=== PATIENT | male | born 1985 | race Hispanic/Latino ===

== ENCOUNTER 2023-11-14 10:18 | Inpatient (IN) | payer OTHER ==
--- OUTSIDE RECORDS SUMMARY | 2023-11-14 10:22 | XMS REPORT | Continuity of Care Document ---
Author Name Unknown Address [address] [place] [address] [address] [id number] [facility] thconnect Address [address] [facility] 1 [address] [place] [address] Care Team Providers Care Compliance Reviewer Name Role Phone Anson Attending Clinician Lindsay Griggs Admitting Clinician Lindsay e Payers Payer Name Policy Type Policy Number Effective Date Expirati on Date Source [facility] [id number] [employer] [facility] [id number] Social History Smoking Status Start Date Stop Date Source Former Smoker [facility] Practice Medications Ordered Medication Name Filled Medication Name Start Date Stop Date Current Medication? Ordering Clinician Indication Dosage Frequency Signature (SIG) Comments Components Source Kenalog 40 mg/mL suspension for injectionTa ke 40 mg by injection route. Kenalog 40 mg/mL suspension for injectionTa ke 40 mg by injection route. 01-20 15:32: 31 No Kenalog 40 mg/mL suspension for injectionT shantell 40 mg by injection route. [facility] Depo-Medrol 80 mg/mL suspension for injectionTa ke 80 mg by injection route. Depo-Medrol 80 mg/mL suspension for injectionTa ke 80 mg by injection route. 01-20 15:30: 30 No Depo-Medro l 80 mg/mL suspension for injectionT shantell 80 mg by injection route. [facility] prednisone 10 mg tablet 4 po qd x 2 days, then 3 po qd x 2 days then 2 po qd x 2 days then 1 po qd x 2 days then 1/2 tab po qd x 2 days prednisone 10 mg tablet 4 po qd x 2 days, then 3 po qd x 2 days then 2 po qd x 2 days then 1 po qd x 2 days then 1/2 tab po qd x 2 days No prednisone 10 mg tablet 4 po qd x 2 days, then 3 po qd x 2 days then 2 po qd x 2 days then 1 po qd x 2 days then 1/2 tab po qd x 2 days [facility] ergocalcife rol (vitamin D2) 1,250 mcg (50,000 unit) capsule Take 1 capsule every week by oral route. ergocalcife rol (vitamin D2) 1,250 mcg (50,000 unit) capsule Take 1 capsule every week by oral route. No 1capsul e(s) Q1W ergocalcif lynn (vitamin D2) 1,250 mcg (50,000 unit) capsule Take 1 capsule every week by oral route. [facility] prednisone 10 mg tablet 4 po qd x 2 days, then 3 po qd x 2 days then 2 po qd x 2 days then 1 po qd x 2 days then 1/2 tab po qd x 2 days prednisone 10 mg tablet 4 po qd x 2 days, then 3 po qd x 2 days then 2 po qd x 2 days then 1 po qd x 2 days then 1/2 tab po qd x 2 days No prednisone 10 mg tablet 4 po qd x 2 days, then 3 po qd x 2 days then 2 po qd x 2 days then 1 po qd x 2 days then 1/2 tab po qd x 2 days [facility] amoxicillin 500 mg tablet Take 2 tablets twice a day by oral route for 10 days. amoxicillin 500 mg tablet Take 2 tablets twice a day by oral route for 10 days. No 2 BID amoxicilli n 500 mg tablet Take 2 tablets twice a day by oral route for 10 days. [facility] Depo-Medrol 80 mg/mL suspension for injection Take 80 mg by injection route. Depo-Medrol 80 mg/mL suspension for injection Take 80 mg by injection route. No 80mg Depo-Medro l 80 mg/mL suspension for injection Take 80 mg by injection route. [facility] Kenalog 40 mg/mL suspension for injection Take 40 mg by injection route. Kenalog 40 mg/mL suspension for injection Take 40 mg by injection route. No 40mg Kenalog 40 mg/mL suspension for injection Take 40 mg by injection route. [facility] Vital Signs Vital Name Observation Time Observation Value Comments S ource BP Diastolic 2023-01-20 00:00:00 87 mm[Hg[facility] 2023-01-20 00:00:00 71 [in_i] [facility] BMI (Body Mass Index) 2023-01-20 00:00:00 31.4 kg/m2 [facility] BP Systolic 2023-01-20 00:00:00 145 mm[Hg] [facility] Body Weight 2023-01-20 00:00:00 225 [lb_av] [facility] Height 2022-08-15 00:00:00 71 [in_i] [facility] BMI (Body Mass Index) 2022-08-15 00:00:00 31.9 kg/m2 [facility] Body Weight 2022-08-15 00:00:00 229 [lb_av] [facility] BP Diastolic 2022-08-11 00:00:00 78 mm[Hg] [facility] Height 2022-08-11 00:00:00 71 [in_i] [facility] BMI (Body Mass Index) 2022-08-11 00:00:00 32 kg/m2 [facility] BP Systolic 2022-08-11 00:00:00 144 mm[Hg] [facility] Body Weight 2022-08-11 00:00:00 229.2 [lb_av] [facility] Procedures Procedure Date / Time Performed Performing Clinicia n Source Vasectomy [facility] Procedure on Ankle [facility] Eye Surgery [facility] Plan of Care Planned Activity Planned Date Details Comments Source Diagnostic Test Pending 2022-08-11 00:00:00 CBC w/ auto diff [code = CBC w/ auto diff] [facility] Diagnostic Test Pending 2022-08-11 00:00:00 lipid panel, serum [code = lipid panel, serum] [facility] Diagnostic Test Pending 2022-08-11 00:00:00 CMP, serum or plasma [code = CMP, serum or plasma] [facility] Diagnostic Test Pending 2022-08-11 00:00:00 HbA1c (hemoglobin A1c), blood [code = HbA1c (hemoglobin A1c), blood] [facility] Diagnostic Test Pending 2022-08-11 00:00:00 urinalysis, complete [code = urinalysis, complete] [facility] Diagnostic Test Pending 2022-08-11 00:00:00 TSH, ultra-sensitive, serum [code = TSH, ultra-sensitive, serum] [facility] Diagnostic Test Pending 2022-08-11 00:00:00 vitamin D, 25-hydroxy, total, serum [code = vitamin D, 25-hydroxy, total, serum] [facility] Diagnostic Test Pending 2022-08-11 00:00:00 vitamin B12, serum [code = vitamin B12, serum] [facility] Encounters Start Date/Time End Date/Time Encounter Type Admission Type Attending [facility] Care Facility Care Department Encounter ID Source 2023-01-20 00:00:00 2023-01-20 00:00:00 Outpatient Stoeckel_M_ AUS_MD VFP VFP [id number] [facility] 2023-01-20 00:00:00 2023-01-20 00:00:00 Outpatient Stoeckel_M_ AUS_MD VFP VFP [id number] [facility] 2023-01-20 00:00:00 2023-01-20 00:00:00 Aries Ornelas MD: [address] [facility], [address], [place] [address] , Ph. VFP [place] - [facility] [place] - VM_AUS_Kushal Gunter [id number] [facility] 2023-01-13 00:00:00 2023-01-13 00:00:00 Outpatient Stoeckel_M_ AUS_MD VFP VFP [id number] [facility] 2022-12-22 00:00:00 2022-12-22 00:00:00 Outpatient Stoeckel_M_ AUS_MD VFP VFP [id number] [facility] 2022-10-30 00:00:00 2022-10-30 00:00:00 Outpatient Stoeckel_M_ AUS VFP VFP [id number] [facility] 2022-09-25 00:00:00 2022-09-25 00:00:00 Outpatient Stoeckel_M_ AUS VFP VFP [id number] [facility] 2022-09-25 00:00:00 2022-09-25 00:00:00 Outpatient Stoeckel_M_ AUS VFP VFP [id number] [facility] 2022-08-25 00:00:00 2022-08-25 00:00:00 Outpatient Stoeckel_M_ AUS VFP VFP [id number] [facility] 2022-08-22 00:00:00 2022-08-22 00:00:00 Outpatient Stoeckel_M_ AUS VFP VFP [id number] [facility] 2022-08-15 00:00:00 2022-08-15 00:00:00 Outpatient Stoeckel_M_ AUS VFP VFP [id number] [facility] 2022-08-15 00:00:00 2022-08-15 00:00:00 Aries Ornelas MD: [address], [address], [place] [address] , Ph. V[place] - [facility] [place] [id number] [facility] 2022-08-11 00:00:00 2022-08-11 00:00:00 Outpatient Stoeckel_M_ AUS VFP VFP [id number] [facility] 2022-08-11 00:00:00 2022-08-11 00:00:00 Aries Ornelas MD: [address], [address], [place] [address] , Ph. VFP [place] - [facility] [place] - [place]_A[place] [id number] [facility] 2022-08-08 00:00:00 2022-08-08 00:00:00 Outpatient Stoeckel_M_ AUS VFP VFP [id number] [facility] 2022-08-06 00:00:00 2022-08-06 00:00:00 Outpatient Stoeckel_M_ AUS VFP VFP [id number] [facility] Results Test Description Test Time Test Comments Results Result Co mments Source [facility] 2000 panel - Serum or Plasma 2022-08-12 00:00:00* Test Item Value Reference Range Interpretation Comme nts Glucose [Mass/volume] in Serum or Plasma (test code = 2345-7) 107 mg/dL 70-99 H Urea nitrogen [Mass/volume] in Serum or Plasma (test code = 3094-0) 14 mg/dL 6-20 Creatinine [Mass/volume] in Serum or Plasma (test code = 2160-0) 0.95 mg/dL 0.76-1.27 Glomerular filtration rate/1.73 sq M.predicted [Volume Rate/Area] in Serum, Plasma or Blood by Creatinine-based formula (CKD-EPI 2020) (test code = 41599-3) 106 mL/min/1.73 >59 Urea nitrogen/Creatinine [Mass Ratio] in Serum or Plasma (test code = 3097-3) 15 9-20 Sodium [Moles/volume] in Serum or Plasma (test code = 2951-2) 140 mmol/L 134-144 Potassium [Moles/volume] in Serum or Plasma (test code = 2823-3) 4.3 mmol/L 3.5-5.2 Chloride [Moles/volume] in Serum or Plasma (test code = 2074-0) 101 mmol/L 96-106 Carbon dioxide, total [Moles/volume] in Serum or Plasma (test code = 2027-) 23 mmol/L 20-29 Calcium [Mass/volume] in Serum or Plasma (test code = 43480-4) 9.8 mg/dL 8.7-10.2 Protein [Mass/volume] in Serum or Plasma (test code = 2885-2) 7.2 g/dL 6.0-8.5 Albumin [Mass/volume] in Serum or Plasma (test code = 1751-7) 4.7 g/dL 4.0-5.0 Globulin [Mass/volume] in Serum by calculation (test code = 98729-0) 2.5 g/dL 1.5-4.5 Albumin/Globulin [Mass Ratio ] in Serum or Plasma (test code = 1759-0) 1.9 1.2-2.2 Bilirubin.total [Mass/volume ] in Serum or Plasma (test code = 1974-) 0.7 mg/dL 0.0-1.2 Alkaline phosphatase [Enzymatic activity/volume] in Serum or Plasma (test code = 6768-6) 89 IU/L 44-121 Aspartate aminotransferase [Enzymatic activity/volume] in Serum or Plasma (test code = 1920-8) 20 IU/L 0-40 Alanine aminotransferase [Enzymatic activity/volume] in Serum or Plasma (test code = 1742-6) 22 IU/L 0-44 [facility] - [id number] 00:00:00* Test Item Value Reference Range Interpretation Comme nts Specific gravity of Urine by Test strip (test code = 5811-5) 1.020 1.005-1.030 pH of Urine by Test strip (t est code = 5803-2) 5.5 5.0-7.5 Color of Urine (test code = 5778-6) yellow yellow Appearance of Urine (test co de = 5767-9) clear clear Leukocyte esterase [Presence ] in Urine by Test strip (test code = 5799-2) negative negative Protein [Presence] in Urine by Test strip (test code = 03627-2) negative negative/trace Glucose [Presence] in Urine by Test strip (test code = 30534-3) negative negative Ketones [Presence] in Urine by Test strip (test code = 2514-8) negative negative Hemoglobin [Presence] in Uri ne by Test strip (test code = 5794-3) negative negative Bilirubin.total [Presence] i n Urine by Test strip (test code = 5770-3) negative negative Urobilinogen [Mass/volume] i n Urine by Test strip (test code = 22268-1) 0.2 mg/dL 0.2-1.0 Nitrite [Presence] in Urine by Test strip (test code = 5802-4) negative negative Microscopic observation [Identifier] in Urine sediment by Light microscopy (test code = 19996-5) see below: Leukocytes [#/area] in Urine sediment by Microscopy high power field (test code = 5821-4) none seen 0-5 Erythrocytes [#/area] in Uri ne sediment by Microscopy high power field (test code = 78255-4) none seen 0-2 Epithelial cells [#/area] in Urine sediment by Microscopy high power field (test code = 5787-7) none seen 0-10 Casts [Presence] in Urine se diment by Light microscopy (test code = 39767-7) none seen none seen Bacteria [#/area] in Urine sediment by Microscopy high power field (test code = 5769-5) none seen none seen/few [facility] - Serum or [id number] 00:00:00* Test Item Value Reference Range Interpretation Comme nts Cholesterol [Mass/volume] in Serum or Plasma (test code = 2093-3) 177 mg/dL 100-199 Triglyceride [Mass/volume] i n Serum or Plasma (test code = 2571-8) 123 mg/dL 0-149 Cholesterol in HDL [Mass/vol ume] in Serum or Plasma (test code = 2085-9) 44 mg/dL >39 Cholesterol in VLDL [Mass/vo lume] in Serum or Plasma by calculation (test code = 57046-3) 22 mg/dL 5-40 Cholesterol in LDL [Mass/vol ume] in Serum or Plasma by calculation (test code = 10002-1) 111 mg/dL 0-99 H [facility]/Hemoglobin.total in [id number] 00:00:00* Test Item Value Reference Range Interpretation Comme nts Hemoglobin A1c/Hemoglobin.to tien in Blood (test code = 4548-4) 5.4 % 4.8-5.6 [facility]rop[facility] [Units/volume] in Serum or Plasma by Detection limit <= 0.005 mIU/[id number] 00:00:00* Test Item Value Reference Range Interpretation Comme nts Thyrotropin [Units/volume] i n Serum or Plasma by Detection limit <= 0.005 mIU/L (test code = 11205-6) 1.120 uIU/mL 0.450-4.500 [facility] HospitalCidozekt79-Jrfniwnxdwrulc D3+25-Hydroxyvitamin D2 [Mass/volume] in Serum or [id number] 00:00:00* Test Item Value Reference Range Interpretation Comme nts 25-Hydroxyvitamin D3+25-Hydroxyvitamin D2 [Mass/volume] in Serum or Plasma (test code = 39655-2) 25.9 NG/mL 30.0-100.0 L [facility] HospitalCobalamin (Vitamin B12) [Mass/volume] in Serum or Plasma 2022-08-12 00:00:00* Test Item Value Reference Range Interpretation Comme nts Cobalamin (Vitamin B12) [Mass/volume] in Serum or Plasma (test code = 2132-9) 244 pg/mL [id number] [facility]
[2023-11-14] MEDS ORDERED: KETOROLAC 30 MG/ML INJ ONE (10:36)
[2023-11-14] MEDS ORDERED: FAMOTIDINE 20 MG/2 ML VIAL IV ONE (10:36)
[2023-11-14] MEDS ORDERED: ONDANSETRON 4 MG/2 ML VIAL ONE (10:36)
[2023-11-14] MEDS ORDERED: NA CHLORIDE 0.9% 1,000 ML ONE ×2 (10:36→13:12)
[2023-11-14 10:46] LABS: Absolute Lymphocytes (CBC) 1.1 K/uL (0.7-4.9); Absolute Monocytes 0.4 K/uL (0.1-1.3); Absolute Neutrophil 10.6 K/uL (1.8-8.0); Basophils % 0.3 % (0-1.3); Hemoglobin 14.7 g/dL (13.6-17.9); Lymphocytes % 9.3 % (15.3-44.8); MCH 30.1 pg (27.0-35.0); MCHC 34.2 g/dL (32.0-36.0); MCV 88.2 fL (80-100); MPV 8.4 fL (7.6-11.3); Neutrophils % 87.4 % (41.7-73.7); Nucleated Red Blood Cells % 0.1 % (0-0); Platelets 327 thou/uL (152-406); RBC Red Blood Cell Count 4.88 M/uL (4.33-5.43); Red Cell Distribution Width 13.7 % (12.1-15.2)
[2023-11-14 11:02] LABS: SARS-CoV-2 Antigen CONTROL BLUE LINE VIS/BG OK; SARS-CoV-2 Antigen Rapid Res Negative (Negative)
[2023-11-14 11:03] LABS: Albumin 4.3 g/dL (3.4-5.0); Albumin/Globulin Ratio 1.3 (1.1-1.8); Anion Gap 9.1 mEq/L (5.0-15.0); Bilirubin Total 0.8 mg/dL (0.2-1.0); Globulin 3.3 g/dL (2.3-3.5); Potassium 4.1 mEq/L (3.5-5.1); Protein, Total 7.6 g/dL (6.4-8.2)
--- NOTE | 2023-11-14 11:38 | RAD REPORT ---
EXAM DESCRIPTION: CTAbdomen Pelvis W Contrast - 11/14/2023 11:27 am CLINICAL HISTORY: ABD PAIN COMPARISON: No comparisons TECHNIQUE: CT of the abdomen and pelvis was performed. All CT scans are performed using dose optimization technique as appropriate and may include automated exposure control or mA/KV adjustment according to patient size. FINDINGS: Lower chest: No acute abnormality. Liver: No acute abnormality or suspicious lesions. Biliary: No biliary ductal dilatation. Stomach: No significant focal abnormality. Duodenum: No significant focal abnormality. Pancreas: No significant abnormality. Spleen: No significant abnormality. Adrenal: No suspicious lesions. Kidney/ureter: No hydronephrosis. No renal calculi. Retroperitoneum: No retroperitoneal adenopathy. Vascular: No aneurysm. Bowel: Small bowel obstruction. The transition point is present in the right lower quadrant. This may be at the terminal ileum. Long segment of fecalized small bowel noted. The small bowel measures 3.5 cm.No appendicitis. Mild diffuse colonic wall thickening.. Peritoneum: No ascites or free air. Bladder: Grossly unremarkable. Reproductive: No adnexal masses. Bones: No acute fracture. Other: n/a IMPRESSION: Small bowel obstruction with transition point in the right lower quadrant, possibly at t he terminal ileum. The course of the small bowel is difficult to follow at this location. No obstruct ing mass is identified. Mild diffuse colonic wall thickening. Reportedly, the patient recently had Cl ostridium difficile colitis.
--- NOTE | 2023-11-14 11:57 | EDPHYS ---
Physician Documentation [facility] Name: Eder Alva Age: 38 yrs Sex: Male : 1985 Arrival Date: 11/14/2023 Time: 10:18 Bed 13 Private MD: ED Physician Abhilash Graf HPI: 11/13 10:22 This 38 yrs old Male presents to ER via Ambulatory with complaints of jh7 Abdominal Pain, Vomiting. 10:22 The patient presents with abdominal pain in the epigastric area. Onset: The jh7 symptoms/episode began/occurred at 03:00. The symptoms do not radiate. Associated signs and symptoms: Pertinent positives: nausea and vomiting, Pertinent negatives: chest pain, constipation, diarrhea, dysuria, fever, headache. The symptoms are described as sharp. Historical: - Allergies: 10: No Known Allergies; ko1 - Home Meds: 10: None [Active]; ko1 - PMHx: 10: None; ko1 - Immunization history:: Adult Immunizations up to date. - Social history:: Smoking status: Patient denies any tobacco usage or history of. ROS: 10:22 Constitutional: Negative for fever, chills, and weight loss, Eyes: Negative for injury, jh7 pain, redness, and discharge, Neck: Negative for injury, pain, and swelling, Cardiovascular: Negative for chest pain, palpitations, and edema, Respiratory: Negative for shortness of breath, cough, wheezing, and pleuritic chest pain, Back: Negative for injury and pain, MS/Extremity: Negative for injury and deformity, Skin: Negative for injury, rash, and discoloration, Neuro: Negative for headache, weakness, numbness, tingling, and seizure, 10:22 Abdomen/GI: Positive for abdominal pain, nausea and vomiting, Negative for diarrhea, constipation, dysphagia, black/tarry stool, rectal bleeding, 10:22 All other systems are negative, Exam: 10:22 Constitutional: This is a well developed, well nourished patient who is awake, alert, jh7 and in no acute distress. Head/Face: Normocephalic, atraumatic. Neck: Trachea midline, no thyromegaly or masses palpated, and no cervical lymphadenopathy. Supple, full range of motion without nuchal rigidity, or vertebral point tenderness. No Meningismus. Cardiovascular: Regular rate and rhythm with a normal S1 and S2. No gallops, murmurs, or rubs. Normal PMI, no JVD. No pulse deficits. Respiratory: Lungs have equal breath sounds bilaterally, clear to auscultation and percussion. No rales, rhonchi or wheezes noted. No increased work of breathing, no retractions or nasal flaring. Back: No spinal tenderness. No costovertebral tenderness. Full range of motion. Skin: Warm, dry with normal turgor. Normal color with no rashes, no lesions, and no evidence of cellulitis. MS/ Extremity: Pulses equal, no cyanosis. Neurovascular intact. Full, normal range of motion. Neuro: Awake and alert, GCS 15, oriented to person, place, time, and situation. Motor strength 5/5 in all extremities. Sensory grossly intact. Normal gait. 10:22 Abdomen/GI: Inspection: abdomen appears normal, Bowel sounds: normal, Palpation: soft, mild abdominal tenderness, in the epigastric area, Vital Signs: 10:25 BP 138 / 89; Pulse 79; Resp 16; Temp 97.4; Pulse Ox 100% ; ko1 10:51 BP 148 / 64; Pulse 57; Resp 18; Pulse Ox 100% on R/A; ph 11:59 BP 150 / 72; Pulse 62; Resp 16; Pulse Ox 100% on R/A; ph 13:00 BP 161 / 95 [place] Sitting (auto/reg); Pulse 51; Resp 18; Pulse Ox 99% on R/A; ph MDM: 10:22 Patient medically screened. [facility] 11:46 ED course: Reviewed CT scan results. Will consult general surgery and admit the [facility] patient.. 12:40 Differential diagnosis: appendicitis, cholecystitis, Cholelithiasis, gastritis, [facility] Peritonitis, Ureterolithiasis, Small bowel obstruction. Data reviewed: vital signs, nurses notes, lab test result(s), radiologic studies, CT scan. Consideration of Admission/Observation Patient was admitted/placed on observation. Management of patient was discussed with the following: Hospitalist: Dr. Pham. Tube Room Cashier: Dr. Cordero (paged and texted. still awaiting response).. I considered the following discharge prescriptions or medication management in the emergency department Medications were administered in the Emergency Department. See MAR. Historians other than the Patient: Spouse/Significant Other: . Counseling: I had a detailed discussion with the patient and/or guardian regarding the historical points, exam findings, and any diagnostic results supporting the discharge/admit diagnosis, the need for further work-up and treatment in the hospital. Response to treatment: the patient's symptoms have mildly improved after treatment. 11/13 10:26 Order name: CBC with Diff; Complete Time: 12:37 [facility] 11/13 10:26 Order name: CMP; Complete Time: 11:08 [facility] 11/13 10:26 Order name: Lipase; Complete Time: 11:08 [facility] 11/13 10:26 Order name: SARS RAPID; Complete Time: 11:08 [facility] 11/13 10:26 Order name: Flu; Complete Time: 11:24 [facility] 11/13 12:21 Order name: CBC Smear Scan; Complete Time: 12:37 [facility] 11/13 10:26 Order name: CT Abd/Pelvis - IV Contrast Only; Complete Time: 11:43 [facility] 11/13 12:15 Order name: Abdomen 1 View (KUB) [facility] 11/13 12:16 Order name: Abdomen 1 View (KUB) [facility] 11/13 12:16 Order name: Abdomen 1 View (KUB) [facility] 11/13 12:16 Order name: Abdomen 1 View (KUB) [facility] 11/13 12:11 Order name: CONS Physician Consult [facility] 11/13 10:26 Order name: IV Saline Lock; Complete Time: 10:42 [facility] 11/13 10:26 Order name: Labs collected and sent; Complete Time: 10:42 [facility] Administered Medications: 10:42 Drug: NS 0.9% IV 1000 ml IV at 1 bolus Per protocol; 1000 mL bolus Route: IV; Rate: 1 ph bolus; Site: right antecubital; 11:59 Follow up: Response: No adverse reaction; IV Status: Completed infusion; IV Intake: ph 1000ml 10:43 Drug: Famotidine IVP 20 mg IVP once; dilute with 10 mL 0.9% NaCl; give over 2 minutes ph Route: IVP; Site: right antecubital; 14:56 Follow up: Response: No adverse reaction; Pain is decreased ph 10:43 Drug: TORadol - Ketorolac IVP 30 mg IVP once Route: IVP; Site: right antecubital; ph 14:56 Follow up: Response: No adverse reaction ph 10:43 Drug: Ondansetron IVP 4 mg IVP once; over 2 minutes Route: IVP; Site: right antecubital;ph 14:57 Follow up: Response: No adverse reaction ph 12:11 Drug: Piperacillin-Tazobactam IVPB 3.375 grams IVPB once over 60 mins; (mix in NS 100 ph mL) Route: IVPB; Infused Over: 60 mins; Site: right antecubital; 13:15 Follow up: Response: No adverse reaction; IV Status: Completed infusion ph Disposition Summary: 11/14/23 11:57 Hospitalization Ordered Notes: Hospitalization Status: Inpatient Admission [facility] Provider: Aziza Foss [facility] Location: Telemetry/MedSur (Inpatient) [facility] Condition: Stable [facility] Problem: new [facility] Symptoms: are unchanged [facility] Bed/Room Type: Standard [facility] Room Assignment: 42(11/14/23 13:43) Diagnosis - Small Bowel Obstruction [facility] Forms: - Medication Reconciliation Form [facility] - SBAR form [facility] - Leadership Thank You Letter [facility] Signatures: Dispatcher [employer] Wendy Godoy RN RN Tami Padilla Dior Pena, SCRAP CRUSHER [place] [id number] Constance Peralta RN RN ko1 Corrections: (The following items were deleted from the chart) 13:43 11:57 [facility]
--- NOTE | 2023-11-14 11:57 | ER ---
Nurse's Notes [facility] Name: Eder Alva Age: 38 yrs Sex: Male : 1985 Arrival Date: 11/14/2023 Time: 10:18 Bed 13 Private MD: Diagnosis: Small Bowel Obstruction Presentation: 11/13 10:25 Chief complaint: Patient states: abdominal pain around umbilicus, had cdiff a few weeks ko1 ago, some epigastric pain, n/v x 10 since 299. Coronavirus screen: nausea, vomiting. Ebola Screen: No symptoms or risks identified at this time. Initial Sepsis Screen: Does the patient meet any 2 criteria? No. Patient's initial sepsis screen is negative. Does the patient have a suspected source of infection? No. Patient's initial sepsis screen is negative. Risk Assessment: Do you want to hurt yourself or someone else? Patient reports no desire to harm self or others. Onset of symptoms was November 14, 2023. 10:25 Method Of Arrival: Ambulatory ko1 10:25 Acuity: IZABELLA 3 ko1 Triage Assessment: 10:27 General: Appears ill, Behavior is calm, cooperative, appropriate for age. Pain: ko1 Complains of pain in abdomen. GI: Reports nausea, vomiting, since 299. Historical: - Allergies: 10:27 No Known Allergies; ko1 - Home Meds: 10:27 None [Active]; ko1 - PMHx: 10:27 None; ko1 - Immunization history:: Adult Immunizations up to date. - Social history:: Smoking status: Patient denies any tobacco usage or history of. Screenin:[address] [facility] ED Fall Risk Assessment (Adult) History of falling in the last 3 months, ph including since admission No falls in past 3 months (0 pts) Confusion or Disorientation No (0 pts) Intoxicated or Sedated No (0 pts) Impaired Gait No (0 pts) Mobility Assist Device Used No (0 pt) Altered Elimination No (0 pt) Score/Fall Risk Level 0 - 2 = Low Risk Oriented to surroundings, Maintained a safe environment, Provided non-skid footwear, Hourly rounding (assess needs \T\ fall precautionary measures) done. Abuse screen: Denies threats or abuse. Denies injuries from another. Nutritional screening: No deficits noted. Tuberculosis screening: No symptoms or risk factors identified. Assessment: 10:43 General: Appears in no apparent distress. comfortable, Behavior is calm, cooperative, ph appropriate for age, Denies fever. Pain: Complains of pain in umbilical area. Neuro: Level of Consciousness is awake, alert, obeys commands, Oriented to person, place, time, situation. Cardiovascular: Capillary refill < 3 seconds Patient's skin is warm and dry. Respiratory: Airway is patent Respiratory effort is even, unlabored. GI: Abdomen is non-distended, Reports lower abdominal pain, upper abdominal pain, nausea, vomiting. 13:31 Reassessment: Attempted to place 16 fr NG tube to rt nare and unsuccessful. Pt ph currently denies nausea, has not vomited during ER stay, no abd distention, and c/o minimal pain. Vital Signs: 10:25 BP 138 / 89; Pulse 79; Resp 16; Temp 97.4; Pulse Ox 100% ; ko1 10:51 BP 148 / 64; Pulse 57; Resp 18; Pulse Ox 100% on R/A; ph 11:59 BP 150 / 72; Pulse 62; Resp 16; Pulse Ox 100% on R/A; ph 13:00 BP 161 / 95 LA Sitting (auto/reg); Pulse 51; Resp 18; Pulse Ox 99% on R/A; ph ED Course: 10:21 Patient arrived in ED. mr 10:22 Dior Pena, ELOY is [facility]. jh7 10:22 Abhilash Graf MD is Attending Physician. jh7 10:27 Triage completed. ko1 10:27 Arm band placed on right wrist. Patient placed in an exam room, on a stretcher, on ko1 pulse oximetry, Patient notified of wait time. 10:29 Wendy Walters, RN is Primary Nurse. ph 10:41 Initial lab(s) drawn, by ED staff, sent to lab. Inserted saline lock: 20 gauge in right ph antecubital area, using aseptic technique. 10:42 Flu Sent. ph 10:42 SARS RAPID Sent. ph 10:42 CBC with Diff Sent. ph 10:42 CMP Sent. ph 10:42 Lipase Sent. ph 10:46 Flu Sent. ph 10:46 SARS RAPID Sent. ph 10:47 CBC with Diff Sent. ph 10:47 CMP Sent. ph 10:47 Lipase Sent. ph 11:28 CT Abd/Pelvis - IV Contrast Only In Process Unspecified. EDMS 11:56 Aziza Foss MD is Hospitalizing Provider. [facility] 14:58 No provider procedures requiring assistance completed. Patient admitted, IV remains in ph place. 14:59 Patient has correct armband on for positive identification. Pulse ox on. NIBP on. ph Administered Medications: 10:42 Drug: NS 0.9% IV 1000 ml IV at 1 bolus Per protocol; 1000 mL bolus Route: IV; Rate: 1 ph bolus; Site: right antecubital; 11:59 Follow up: Response: No adverse reaction; IV Status: Completed infusion; IV Intake: ph 1000ml 10:43 Drug: Famotidine IVP 20 mg IVP once; dilute with 10 mL 0.9% NaCl; give over 2 minutes ph Route: IVP; Site: right antecubital; 14:56 Follow up: Response: No adverse reaction; Pain is decreased ph 10:43 Drug: TORadol - Ketorolac IVP 30 mg IVP once Route: IVP; Site: right antecubital; ph 14:56 Follow up: Response: No adverse reaction ph 10:43 Drug: Ondansetron IVP 4 mg IVP once; over 2 minutes Route: IVP; Site: right antecubital;ph 14:57 Follow up: Response: No adverse reaction ph 12:11 Drug: Piperacillin-Tazobactam IVPB 3.375 grams IVPB once over 60 mins; (mix in NS 100 ph mL) Route: IVPB; Infused Over: 60 mins; Site: right antecubital; 13:15 Follow up: Response: No adverse reaction; IV Status: Completed infusion ph Medication: 15:00 VIS not applicable for this client. ph Intake: 11:59 IV: 1000ml; Total: 1000ml. ph Outcome: 11:57 Decision to Hospitalize by Provider. [facility] 14:58 Admitted to Med/surg accompanied by tech, via wheelchair, with chart, ph 14:58 Condition: stable 14:58 Instructed on the need for admit, 15:01 Patient left the ED. Signatures: Dispatcher [employer] EDME Mayelin Medel, Reg Reg mr Wendy Walters RN RN ph Dior Pena, PRODUCE MANAGER PRODUCE MANAGER [facility] Fabian, Constance, RN RN ko1
[2023-11-14] MEDS ORDERED: NA CHLORIDE 0.9% 100 ML ONE (12:05)
[2023-11-14] MEDS ORDERED: PIPERACIL/TAZO 3.375 GM VIAL IV ONE (12:06)
--- NOTE | 2023-11-14 12:08 | P.HP ---
Certification for Inpatient Patient admitted to: Inpatient With expected LOS: <2 Midnights <María Lau - Last Filed: 11/14/23 13:05> Patient History Date of Service: 11/14/23 Reason for admission: small bowel obstruction History of Present Illness: 38 year old male with recent diagnosis of CDiff 2 weeks ago, presents to the emergency room with abdominal pain, nausea, vomiting. He reports vomiting, unable to tolerate PO intake, abdominal pain, LLQ, epigastric pain that is constant. He reports x2 BM today, recent diagnosis with Cdiff completed antibiotics. He denies chest pain, shortness of breath, fever. Plan to admit for SBO, NV Abdominal pain. CT abdomen IMPRESSION: Small bowel obstruction with transition point in the right lower quadrant, possibly at the terminal ileum. The course of the small bowel is difficult to follow at this location. No obstructing mass is identified. Mild diffuse colonic wall thickening. Reportedly, the patient recently had Clostridium difficile colitis <María Lau - Last Filed: 11/14/23 13:05> Date of Service: 11/14/23 <Aziza Foss - Last Filed: 11/14/23 14:13> Allergies No Known Allergies Allergy (Unverified 11/14/23 13:00) Review of Systems per HPI <María Lau - Last Filed: 11/14/23 13:05> Physical Examination - Physical Exam General: Alert, In no apparent distress, Oriented x3 HEENT: Atraumatic, Normocephalic Neck: Supple, 2+ carotid pulse no bruit Respiratory: Clear to auscultation bilaterally, Normal air movement Cardiovascular: No edema, Normal pulses Gastrointestinal: Hypoactive, Other (epigastric, LLQ/RLQ tenderness) Musculoskeletal: No clubbing, No swelling - Studies Laboratory Data (last 24 hrs) 11/14/23 11/14/23 10:38 10:38 WBC 12.20 H Hgb 14.7 Hct 43.0 Plt Count 327 Sodium 139 Potassium 4.1 BUN 12 Creatinine 1.25 Glucose 121 H Total Bilirubin 0.8 AST 28 ALT 38 Alkaline Phosphatase 93 Lipase 18 Microbiology Data (last 24 hrs): 11/14/23 10:38 Nasopharnyx Influenza Type A Antigen Screen - Final 11/14/23 10:38 Nasopharnyx Influenza Type B Antigen Screen - Final <María Lau - Last Filed: 11/14/23 13:05> - Studies Laboratory Data (last 24 hrs) 11/14/23 11/14/23 10:38 10:38 WBC 12.20 H Hgb 14.7 Hct 43.0 Plt Count 327 Sodium 139 Potassium 4.1 BUN 12 Creatinine 1.25 Glucose 121 H Total Bilirubin 0.8 AST 28 ALT 38 Alkaline Phosphatase 93 Lipase 18 Microbiology Data (last 24 hrs): 11/14/23 10:38 Nasopharnyx Influenza Type A Antigen Screen - Final 11/14/23 10:38 Nasopharnyx Influenza Type B Antigen Screen - Final <Aziza Foss C - Last Filed: 11/14/23 14:13> Assessment and Plan - Plan Assessment/Plan SBO Abdominal pain, NV Leukocytosis Recent Cdiff Diagnosis, resolved Surg consult, NG tube LIS, prn analgesics, antiemetics IVF, Zosyn Diet NPO Full Code DVT SCD Disposition: Home, indpendant prior to admission Discharge Plan: Home - Advance Directives Does patient have a Living Will: No Does patient have a Durable POA for Healthcare: No - Code Status/Comfort Care Code Status: Full Code Critical Care: No Time Spent Managing Pts Care (In Minutes): 55 <María Lau - Last Filed: 11/14/23 13:05> - Plan Pt seen and examined. I agree with the note by the ZOO KEEPER. Pt is 38 yo male with no past medical history who presents with nausea, vomiting and abd pain. The abd pain started at 3am. It is located in the epigastrium, sharp, intermittent and non-radiating in nature with severity of 5/10. At bedside, pt is in NAD. A/P: SBO: Will keep pt NPO. Continue IVF. low threshold to place NG tube with low intermittent suction. Will f/u serial KUB. Consulted Gen surgery. Leukocytosis: WBC 12.2. Likely reactive. Will continue renally dosed iv zosyn and monitor. LAURI: cr is 1.25. Will continue IVF, avoid nephrotoxins and monitor renal function. DVT ppx: SCD Code: full <Aziza Foss - Last Filed: 11/14/23 14:13>
[2023-11-14 12:20] LABS: Platelet Estimate ADEQ; White Blood Cell Scan OK (OK)
[2023-11-14 12:21] LABS: Blood Morphology Comment NOT SEEN (NOT SEEN)
[2023-11-14] MEDS ORDERED: PROMETHAZINE INJ 25 MG/ML AMP IV PRN (12:24)
[2023-11-14] MEDS: NA CHLORIDE 0.9% 1,000 ML IV SCH (13:01)
[2023-11-14] MEDS ORDERED: GLYCERIN ADULT SUPP PR PRN (13:01)
[2023-11-14] MEDS ORDERED: LIDOCAINE VISCOUS 2% 10ML ORAL SOLN ONE (13:11)
[2023-11-14] MEDS ORDERED: HYDROMORPHONE HCL 0.5 MG/0.5 ML INJ ONE (13:51)
[2023-11-14 15:20] VITALS: O2SAT 99
[2023-11-14] MEDS: ONDANSETRON 4 MG/2 ML VIAL IV PRN (16:04)
[2023-11-14] MEDS ORDERED: PIPER TAZO 3.375 GM in NA CHLORIDE 0.9% 100 ML IV SCH (17:00)
[2023-11-14 17:07] VITALS: BMI 29.2
[2023-11-14] MEDS: MINERAL OIL 30 ML UCUP PO ONE (17:39)
[2023-11-14] MEDS: HYDROMORPHONE HCL 0.5 MG/0.5 ML INJ IV PRN (17:39)
--- NOTE | 2023-11-14 18:18 | P.CNS ---
Date of Consult: 11/14/23 PC: Patient presents to the emergency room with severe abdominal pain for diagnosis and treatment. HPC: Patient, with a history of C. difficile a few months ago which was treated with antibiotics, presents now with severe abdominal pain. Was able to eat yesterday but now complaining of pain located in the supraumbilical area. Descr ibes it as hard and cramping. Was having some nausea and vomiting associated with it. PSHx: Negative PMHx: C. difficile Social Hx: No known allergies Sys R: No cough, wheeze, shortness of breath. Has otherwise been in good health. Last meal was a bunch of pork tamales, afterwards he experiences discomfort. O/E: Awake alert vital signs are stable does not look ill at the moment. HEENT: Within normal limits Chest: Chest movement equal bilaterally Abd: Not distended, mild vague tenderness. [place]: Intact Data: Has what appears to be a partial small bowel obstruction. There is a dila ada loop just at the distal ileum. Impression: Patient appears to have a partial small bowel obstruction. On CT scan difficult to tell the exact etiology. May be due to inflammation from flareup of his C. difficile, or adhesions that are formed. Plan: Patient has been admitted, given IV antibiotics. I recommend we add vancomycin 125 mg p.o. every 6 hours. Will also give him some mineral oil. Will reassess him again in the a.m., does not require immediate surgical intervention at the moment. Will follow with you.
[2023-11-14] MEDS: PIPER TAZO 3.375 GM in NA CHLORIDE 0.9% 100 ML IV SCH (21:33)
[2023-11-14] MEDS: METOCLOPRAMIDE 10 MG/2mL INJ IV PRN (21:34)
[2023-11-14 23:16] LABS: Sqamous Epithelial <5 /HPF (None Seen); Urine Bacteria None Seen /HPF (<20); Urine Bilirubin NEGATIVE (Negative); Urine Blood Negative (Negative); Urine Clarity Clear (Clear); Urine Color Yellow (Yellow); Urine Culture Reflex Order NOT NEEDED; Urine Glucose NEGATIVE (Negative); Urine Ketones TRACE (Negative); Urine Microscopic Reflex YN ORDER UMIC; Urine Mucus 2+ /HPF (None Seen); Urine Nitrite NEGATIVE (Negative); Urine Protein TRACE (Negative); Urine RBC <5 /HPF (None Seen); Urine Urobilinogen Normal (Normal); Urine WBC None Seen /HPF (<5)
[2023-11-14 23:26] LABS: Specific Gravity > 1.030 (1.005-1.030)
[2023-11-15] MEDS: VANCOMYCIN HCL 125 MG CAPSULE PO SCH
[2023-11-15 07:07] LABS: Absolute Eosinophils 0.4 K/uL (0-0.5); Absolute Lymphocytes (CBC) 2.1 K/uL (0.7-4.9); Absolute Monocytes 0.7 K/uL (0.1-1.3); Absolute Neutrophil 4.7 K/uL (1.8-8.0); Basophils % 0.4 % (0-1.3); Eosinophils % 4.6 % (0-4.4); Hematocrit 38.5 % (39.6-49.0); Hemoglobin 13.1 g/dL (13.6-17.9); Lymphocytes % 26.9 % (15.3-44.8); MCH 30.3 pg (27.0-35.0); MCHC 34.1 g/dL (32.0-36.0); MPV 8.7 fL (7.6-11.3); Monocytes % 9.3 % (3.3-12.3); Neutrophils % 58.8 % (41.7-73.7); Platelets 252 thou/uL (152-406); RBC Red Blood Cell Count 4.32 M/uL (4.33-5.43); Red Cell Distribution Width 13.4 % (12.1-15.2)
[2023-11-15 07:20] LABS: Anion Gap 8.8 mEq/L (5.0-15.0); Magnesium 1.9 mg/dL (1.6-2.4); Potassium 3.8 mEq/L (3.5-5.1)
--- NOTE | 2023-11-15 08:46 | RAD REPORT ---
EXAM DESCRIPTION: RAD - Abdomen 1 View (KUB) - 11/15/2023 8:08 am CLINICAL HISTORY: eval SBO Pain COMPARISON: Abdomen Pelvis W Contrast dated 11/14/2023 FINDINGS: Several mildly dilated small bowel loops in the right central abdomen noted, with mild imp rovement since yesterday's CT study. No suspicious calcifications. No significant bony findings. No free air seen. IMPRESSION: Mildly distended right central small bowel loops show mild improvement since yesterday's CT.
--- NOTE | 2023-11-15 08:59 | P.PN ---
Subjective Date of Service: 11/15/23 Chief Complaint: small bowel obstruction Abdominal pain improved with as needed analgesics - Physical Exam General: Alert, In no apparent distress, Oriented x3 HEENT: Atraumatic, Normocephalic Neck: Supple, 2+ carotid pulse no bruit Respiratory: Clear to auscultation bilaterally, Normal air movement Cardiovascular: No edema, Normal pulses Gastrointestinal: Hypoactive, Other (epigastric, LLQ/RLQ tenderness) Musculoskeletal: No clubbing, No swelling Review of Systems Per HPI Physical Examination - Vital Signs Temperature: 97.8 F Blood Pressure: 133/62 Pulse: 54 Respirations: 15 Pulse Ox (%): 98 - Studies Laboratory Data (last 24 hrs) 11/14/23 11/14/23 10:38 10:38 WBC 12.20 H Hgb 14.7 Hct 43.0 Plt Count 327 Sodium 139 Potassium 4.1 BUN 12 Creatinine 1.25 Glucose 121 H Total Bilirubin 0.8 AST 28 ALT 38 Alkaline Phosphatase 93 Lipase 18 Microbiology Data (last 24 hrs): 11/14/23 10:38 Nasopharnyx Influenza Type A Antigen Screen - Final 11/14/23 10:38 Nasopharnyx Influenza Type B Antigen Screen - Final Assessment And Plan - Plan Assessment/Plan SBO Abdominal pain, NV improved Leukocytosis improved Recent Cdiff Diagnosis, resolved Surg consult, NG tube LIS, prn analgesics, antiemetics IVF, Zosyn, vancomycin, Reglan, glycerin suppository Repeat KUB IMPRESSION: Mildly distended right central small bowel loops show mild improvement since yesterday's CT. Diet NPO Full Code DVT SCD Disposition: Home, indpendant prior to admission Discharge Plan: Home - Code Status/Comfort Care Code Status: Full Code Critical Care: No Time Spent Managing PTS Care (In Minutes): 35
--- NOTE | 2023-11-15 10:41 | P.DS ---
Admission Date: 11/14/23 Discharge Date: 11/15/23 Reason for Admission: small bowel obstruction Brief History of Present Illness: 38 year old male with recent diagnosis of CDiff 2 weeks ago, presents to the emergency room with abdominal pain, nausea, vomiting. He reports vomiting, kindra ble to tolerate PO intake, abdominal pain, LLQ, epigastric pain that is constant. He reports x2 BM today, recent diagnosis with Cdiff completed antibiotics. He denies chest pain, shortness of breath, fever. Plan to admit for SBO, NV Abdominal pain. CT abdomen IMPRESSION: Small bowel obstruction with transition point in the right lower quadrant, possibly at the terminal ileum. The course of the small bowel is difficult to follow at this location. No obstructing mass is identified. Mild diffuse colonic wall thickening. Reportedly, the patient recently had Clostridium difficile colitis - Physical Exam General: Alert, In no apparent distress, Oriented x3 HEENT: Atraumatic, Normocephalic Neck: Supple, 2+ carotid pulse no bruit Respiratory: Clear to auscultation bilaterally, Normal air movement Cardiovascular: No edema, Normal pulses Gastrointestinal: +BS, nontender Musculoskeletal: No clubbing, No swelling Hospital Course: 38 year-old male patient presented with abdominal pain, nausea vomiting. Was noted to have small bowel obstruction. Condition improved with bowel rest, IV fluids, IV antibiotics. Patient tolerating diet, stable for discharge to home with follow-up appointment with primary care physician, follow-up with surgery after PROBLEM: Small bowel obstruction History of C. difficile Discharged home on p.o. vancomycin Zofran prn Nausea/vomiting Probiotic BID Follow-up with surgery after discharge Continue home medicines as previously prescribed GOAL: Clear understanding of disease process INSTRUCTIONS: Physician Discharge Instructions: -Follow-up with PCP in 1 to 2 weeks -Please call if any questions regarding hospital stay -Please call nursing station at [phone] if any nursing or medication questions -Return to the emergency room if symptoms worsen Diet: ADA, low sodium Activity: Fall precautions <María Lau - Last Filed: 11/15/23 16:13> Admission Date: 11/14/23 Discharge Date: 11/15/23 Hospital Course: Pt seen and examined. I agree with the note by the AUTO HAULER. Pt had regular bowel movement this am. KUB shows improvement of the SBO. Ok to discharge pt with po vanc given history of recent C diff infection <CitlalyAziza archuleta C - Last Filed: 11/15/23 16:55> Disposition: ROUTINE DISCHARGE Vital Signs/Physical Exam: Temp Pulse Resp BP Pulse Ox 97.8 F 54 15 133/62 98 11/15/23 09:09 11/15/23 09:09 11/15/23 09:09 11/15/23 09:09 11/15/23 09:09 Laboratory Data at Discharge: WBC 8.00 thou/uL (4.3-10.9) 11/15/23 06:48 Hgb 13.1 g/dL (13.6-17.9) L D 11/15/23 06:48 Hct 38.5 % (39.6-49.0) L 11/15/23 06:48 Plt Count 252 thou/uL (152-406) 11/15/23 06:48 Sodium 140 mEq/L (136-145) 11/15/23 06:48 Potassium 3.8 mEq/L (3.5-5.1) 11/15/23 06:48 BUN 13 mg/dL (7-18) 11/15/23 06:48 Creatinine 1.23 mg/dL (0.70-1.30) 11/15/23 06:48 Glucose 115 mg/dL (74-106) H 11/15/23 06:48 Magnesium 1.9 mg/dL (1.6-2.4) 11/15/23 06:48 Total Bilirubin 0.8 mg/dL (0.2-1.0) 11/14/23 10:38 AST 28 U/L (15-37) 11/14/23 10:38 ALT 38 U/L (16-61) 11/14/23 10:38 Alkaline Phosphatase 93 U/L (45-117) 11/14/23 10:38 Lipase 18 U/L (13-75) 11/14/23 10:38 <María Lau - Last Filed: 11/15/23 16:13> Vital Signs/Physical Exam: Temp Pulse Resp BP Pulse Ox 97.5 F 52 16 137/75 98 11/15/23 12:00 11/15/23 12:00 11/15/23 12:00 11/15/23 12:00 11/15/23 12:00 Laboratory Data at Discharge: WBC 8.00 thou/uL (4.3-10.9) 11/15/23 06:48 Hgb 13.1 g/dL (13.6-17.9) L D 11/15/23 06:48 Hct 38.5 % (39.6-49.0) L 11/15/23 06:48 Plt Count 252 thou/uL (152-406) 11/15/23 06:48 Sodium 140 mEq/L (136-145) 11/15/23 06:48 Potassium 3.8 mEq/L (3.5-5.1) 11/15/23 06:48 BUN 13 mg/dL (7-18) 11/15/23 06:48 Creatinine 1.23 mg/dL (0.70-1.30) 11/15/23 06:48 Glucose 115 mg/dL (74-106) H 11/15/23 06:48 Magnesium 1.9 mg/dL (1.6-2.4) 11/15/23 06:48 Total Bilirubin 0.8 mg/dL (0.2-1.0) 11/14/23 10:38 AST 28 U/L (15-37) 11/14/23 10:38 ALT 38 U/L (16-61) 11/14/23 10:38 Alkaline Phosphatase 93 U/L (45-117) 11/14/23 10:38 Lipase 18 U/L (13-75) 11/14/23 10:38 <Aziza Foss - Last Filed: 11/15/23 16:55> Diet: [place] Activity: Fall precautions Time spent managing pt's care (in minutes): 55 <María Lau - Last Filed: 11/15/23 16:13> <Aziza Foss - Last Filed: 11/15/23 16:55> Home Medications: Bacillus Coagulans [Probiotic] 1 each PO BID 10 Days #20 cap 11/15/23 Ondansetron [Zofran] 4 mg PO Q6H PRN 15 Days #30 tab 11/15/23 Vancomycin HCl 125 mg PO Q6HR 10 Days #40 cap 11/15/23 New Medications: Bacillus Coagulans [Probiotic] 1 each PO BID 10 Days #20 cap Vancomycin HCl 125 mg PO Q6HR 10 Days #40 cap Ondansetron [Zofran] 4 mg PO Q6H PRN 15 Days #30 tab PRN Reason: Nausea / Vomiting Physician Discharge Instructions: 38 year-old male patient presented with abdominal pain, nausea vomiting. Was noted to have small bowel obstruction. Condition improved with bowel rest, IV fluids, IV antibiotics. Patient tolerating diet, stable for discharge to home with follow-up appointment with primary care physician, follow-up with surgery after PROBLEM: Small bowel obstruction History of C. difficile Discharged home on p.o. vancomycin Zofran Follow-up with surgery after discharge Continue home medicines as previously prescribed GOAL: Clear understanding of disease process INSTRUCTIONS: Physician Discharge Instructions: -Follow-up with PCP in 1 to 2 weeks -Please call if any questions regarding hospital stay -Please call nursing station at [phone] if any nursing or medication questions -Return to the emergency room if symptoms worsen Diet: ADA, low sodium Activity: Fall precautions Followup: NONE,NONE [Primary Care Provider] - Awais Cordero MD [OUTSIDE PHYSICIAN] -
[2023-11-15 12:43] VITALS: BP 137/75; TEMP 97.5
--- NOTE | 2023-11-15 13:23 | P.PN ---
Date of Service: 11/15/23 S: Patient states he feels a whole lot better today. Had some bowel movements. Tolerating full liquid diet. Vital signs are stable, white cells count has come down. O: Abdomen is soft minimal tenderness A: Partial small bowel obstruction appears to have resolved, P: DC home, continue vancomycin for 10 days. Patient may follow-up with me or with his own private physician.
== END 2023-11-15 15:57 | disposition home or self-care (01) | DRG 389 ==
LOC: ER 10:18 → ERHOLD 12:08 → 4TH 13:58
PROVIDERS: ADMIT Hospitalist; ATTEND Hospitalist
DX: K56.600 Partial intestinal obstruction, unspecified as to cause (principal); N17.9 Acute kidney failure, unspecified; D72.829 Elevated white blood cell count, unspecified
CPT/HCPCS: 36415; 74018; 74177; 80048; 80053; 81001; 83690; 83735; 85025; 87804; 87811; 96361; 96365; 96375; 99285; J1170; J2405; J2543; J2765; J7030; Q9967